=== PATIENT | female | born 1990 | race Caucasian/White ===

== ENCOUNTER → 2019-03-05 13:17 | Outpatient (CLI) | payer OTHER, SELFPAY ==
[2019-03-05 14:21] LABS: HCG Quantitative /Beta subunit < 2.39 mIU/mL
== END ==
PROVIDERS: Visit Provider Physician Assistant
DX: Z32.02 Encounter for pregnancy test, result negative (principal)
CPT/HCPCS: 36415; 84702

== ENCOUNTER 2019-09-13 12:18 | Emergency (ER) | payer OTHER, SELFPAY ==
[2019-09-13 12:35] VITALS: BP 98/64; PULSE 109; RESP 14; TEMP 37.5; O2SAT 100
--- NOTE | 2019-09-13 14:07 | ED_ITS ---
HPI - Back Pain/Injury General Chief Complaint: Back Pain/Injury Stated Complaint: lightheadedness, back pain, sent from [facility] Time Seen by Provider: 09/13/19 14:00 Source: patient Limitations: no limitations History of Present Illness HPI Narrative: 29-year-old woman with some mild left back pain, heavy menstrual cycle had a episode of dizziness while at [facility]. They were quite concerned and recommended to come to the emergency room for further evaluation. She is not particularly concerned and would not have chosen to come to the emergency room with any of her symptoms otherwise. She does note that her last Depo shot was last October(almost a year ago) and she has had regular periods since then. She was concerned that the current menstrual cycle was a couple days late. She took a home test that was negative and then began having her menses. She has continued to bleed for 8 days and describes it is moderately heavy but not that unusual. She is not particularly concerned with this. She states that she has a very active job with lots of lifting, bending, twisting and has a bit of left upper lumbar back pain. She denies fever, chills, no high risk factors for epidural abscess or diskitis, no dysuria, flank pain, suprapubic pain or abdominal pain. Related Data Home Medications Medication Instructions Recorded Confirmed No Known Home Medications 03/05/19 03/05/19 Allergies Allergy/AdvReac Type Severity Reaction Status Date / Time hydrocodone AdvReac Nausea Verified 09/13/19 12:42 Review of Systems Review of Systems Narrative: All systems reviewed and are unremarkable except as noted in HPI and below Patient History Social History Smoking Status: Former smoker Smoking Status: Former smoker alcohol intake frequency: other Substance Use Type: does not use Exam Narrative Exam Narrative: General: Healthy appearing, in no acute distress. Able to give a complete and coherent history. Well-nourished well-developed. Heart rate goes from 95 supine to 105 standing without dizziness or lightheadedness HEENT: Moist mucous membranes, normal sclera with reactive pupils, Neck: supple Respiratory: Lungs are clear to auscultation, no wheezing no rales no rhonchi. Full and symmetrical air movement Cardiac: Regular rate and rhythm no murmurs no bruits Abdomen: Soft nontender good bowel tones, no flank pain Skin: Warm and dry, no rashes Neurologic: Grossly neurologically intact with no obvious asymmetries or abnormalities Extremities: No trauma, well perfused Spine: No tenderness along the axial skeleton to palpation. She has some mild muscle spasm that completely reproduces her back pain when palpated from approximately T12-L3 without associated skin rashes. Psych: Cooperative, appropriate insight and affect Initial Vital Signs Initial Vital Signs: Vital Signs Temperature 99.5 F 09/13/19 12:35 Pulse Rate 109 H 09/13/19 12:35 Respiratory Rate 14 09/13/19 12:35 Blood Pressure 98/64 09/13/19 12:35 Pulse Oximetry 100 09/13/19 12:35 Course Vital Signs Vital signs: Vital Signs - 8 hr 09/13/19 12:35 Temperature 99.5 F Pulse Rate 109 H Respiratory Rate 14 Blood Pressure 98/64 Pulse Oximetry 100 MDM - Back Pain/Injury Medical Records Attestation: I reviewed the patient's medical records. [facility] Narrative Medical decision making narrative: 29-year-old to had an it bothered to eat or drink over the last 24 hours with a mild near syncopal episode while in the [facility] office with her child she states that she does have plenty of food to eat and drink at home and simply forgets at times. She is having a heavy menstrual cycle but does not considered abnormal. She has developed some mechanical back pain is been present for 5 days related to her active lifestyle and physical amanda b. Questions are answered, she is safe for home discharge at this time Discharge Plan Departure Patient Disposition: Home Clinical Impression: Acute mechanical low back pain with duration of less than six weeks, Acute dehydration Instructions: DI for Back Strain or Sprain Activity Restrictions/Additional Instructions: Thank you for coming in today. Your physical exam today suggests an acute back strain based on the bit of muscle spasm in the active area where your hurting. The rest of your exam is entirely normal and I am not suspicious that you have an acute infection of any type or need any additional workup at this time. The fact that you had a negative test just prior to starting this period and that the period has been a bit heavy, may have contributed to the slight bit of dizziness that you had earlier today. Certainly not eating or drinking for almost 24 hours will cause some dehydration and can certainly lead to some dizziness. It is safe for you to go home. I would encourage you to continue drinking fluid and have some lunch once you are out of the emergency department For the back pain using 400 mg of ibuprofen(parentheses 2 [id number] pills) and 1 Tylenol every 6 hours can be very helpful in controlling pain. If the menstrual bleeding continues or worsens and you want to have that further evaluated please return to the emergency department. I hope your back heals up quickly Prescriptions: No Action No Known Home Medications RF: 0
[2019-09-13 14:35] VITALS: BP 101/68; PULSE 88; RESP 12; O2SAT 98
--- NOTE | 2019-09-13 14:41 | ED.BACK ---
HPI - Back Pain/Injury General Chief Complaint: Back Pain/Injury Stated Complaint: lightheadedness, back pain, sent from [facility] Time Seen by Provider: 09/13/19 14:00 Source: patient Limitations: no limitations History of Present Illness HPI Narrative: 29-year-old woman with no significant medical issues has not had anything to eat or drink over the last 24 hours aside from a number of cups of coffee had a near syncopal episode while at a [facility] visit and also notes that she is having left back pain and a particularly heavy menstrual cycle currently. Had [facility] not insisted on evaluation she would not have presented to the emergency department. She notes she has an active lifestyle, as well as a physically demanding job. She has noticed left-sided low back pain for approximately 5 days. No radicular complaints with this. She also notes that her current menstrual cycle was a few days late. She had a negative test and then began her cycle and has had 8 days of bleeding at this time. She states that it is a bit heavier than usual but is not particularly concerned. She denies fevers, chills, cough, abdominal pain, shortness of breath. Regarding her back pain she has had no specific traumas, no high risk behaviors to be concern for epidural abscess or diskitis, and no recent infections. Related Data Home Medications Medication Instructions Recorded Confirmed No Known Home Medications 03/05/19 03/05/19 Allergies Allergy/AdvReac Type Severity Reaction Status Date / Time hydrocodone AdvReac Nausea Verified 09/13/19 12:42 Review of Systems Review of Systems Narrative: All systems reviewed and are unremarkable except as noted in HPI and below Patient History Social History Smoking Status: Former smoker Smoking Status: Former smoker alcohol intake frequency: other Substance Use Type: does not use Exam Narrative Exam Narrative: General: Healthy appearing, in no acute distress. Able to give a complete and coherent history. Well-nourished well-developed HEENT: Moist mucous membranes, normal sclera with reactive pupils, Neck: supple Respiratory: Lungs are clear to auscultation, no wheezing no rales no rhonchi. Full and symmetrical air movement Cardiac: Regular rate and rhythm no murmurs no bruits Abdomen: Soft nontender good bowel tones, no flank pain Skin: Warm and dry, no rashes Spine: Minor paraspinous muscle spasm approximately T10-L3 left side Neurologic: Grossly neurologically intact with no obvious asymmetries or abnormalities Extremities: No trauma, well perfused Psych: Cooperative, appropriate insight and affect Initial Vital Signs Initial Vital Signs: Vital Signs Temperature 99.5 F 09/13/19 12:35 Pulse Rate 109 H 09/13/19 12:35 Respiratory Rate 14 09/13/19 12:35 Blood Pressure 98/64 09/13/19 12:35 Pulse Oximetry 100 09/13/19 12:35 Course Vital Signs Vital signs: Vital Signs - 8 hr 09/13/19 12:35 09/13/19 14:35 Temperature 99.5 F Pulse Rate 109 H 88 Respiratory Rate 14 12 Blood Pressure 98/64 101/68 Pulse Oximetry 100 98 MDM - Back Pain/Injury MDM Narrative Medical decision making narrative: Mild near syncopal episode after a day of minimal oral input. She does state that she does have access to food and drinks but frequently forgets to eat. Mild paraspinous spasm to the back consistent with an active job and lifestyle. Heavy menstrual cycle that she feels is well still within her norm. Safe for home discharge at this time Discharge Plan Departure Patient Disposition: Home Clinical Impression: Acute mechanical low back pain with duration of less than six weeks, Acute dehydration Discharge Date/Time: 09/13/19 14:37 Instructions: DI for Back Strain or Sprain Activity Restrictions/Additional Instructions: Thank you for coming in today. Your physical exam today suggests an acute back strain based on the bit of muscle spasm in the active area where your hurting. The rest of your exam is entirely normal and I am not suspicious that you have an acute infection of any type or need any additional workup at this time. The fact that you had a negative test just prior to starting this period and that the period has been a bit heavy, may have contributed to the slight bit of dizziness that you had earlier today. Certainly not eating or drinking for almost 24 hours will cause some dehydration and can certainly lead to some dizziness. It is safe for you to go home. I would encourage you to continue drinking fluid and have some lunch once you are out of the emergency department For the back pain using 400 mg of ibuprofen(parentheses 2 xszj-whe-ccnvnly pills) and 1 Tylenol every 6 hours can be very helpful in controlling pain. If the menstrual bleeding continues or worsens and you want to have that further evaluated please return to the emergency department. I hope your back heals up quickly Prescriptions: No Action No Known Home Medications RF: 0
== END 2019-09-13 14:37 | disposition home or self-care (01) ==
PROVIDERS: Emergency Provider Emergency Medicine
DX: M54.5 Low back pain (principal); E86.0 Dehydration; N92.0 Excessive and frequent menstruation with regular cycle
CPT/HCPCS: 99281

== ENCOUNTER → 2020-08-08 12:57 | Outpatient (CLI) | payer OTHER, SELFPAY ==
[2020-08-08 13:30] LABS: Add Manual Diff / Slide Review NO; Basophils Absolute Auto 0 /uL (0-100); Basophils Percent Auto 0.2 % (0-2); Eosinophils Absolute Auto 300 /uL (0-450); Eosinophils Percent Auto 2.3 % (2-4); Hematocrit 40.5 % (36-46); Hemoglobin 14.1 g/dL (12.0-16.0); Lymphocytes Absolute Auto 2500 /uL (1100-4500); Lymphocytes Percent Auto 19.3 % (25-40); Mean Corpuscular HGB Conc 34.9 % (30-36); Mean Corpuscular Hemoglobin 28.8 PG (26-34); Mean Corpuscular Volume 82.6 fL (80-100); Monocytes Absolute Auto 700 /uL (0-900); Monocytes Percent Auto 5.6 % (3-14); Neutrophils Absolute Auto 9400 /uL (1500-7000); Neutrophils Percent Auto 72.6 % (50-75); Platelet Count 337 X10^3/uL (150-400); Red Blood Cell Count 4.91 X10^6/uL (4.0-5.2); Red Cell Distribution Width 13.1 % (11.6-14.8)
[2020-08-08 16:51] LABS: Appearance Urine UA CLOUDY; Bilirubin Urine UA NEGATIVE (NEGATIVE); Color Urine UA YELLOW; Glucose Urine UA NEGATIVE (Negative); Ketones Urine UA NEGATIVE (NEGATIVE); Leukocyte Esterase Urine UA TRACE (NEGATIVE); Nitrite Urine UA POSITIVE (Negative); Occult Blood Urine UA NEGATIVE (Negative); Protein Urine UA NEGATIVE (Negative); Urobilinogen Urine UA 0.2 E.U./dL (0.2)
[2020-08-08 17:06] LABS: pH Urine UA 6.5 (4.5-8.0)
[2020-08-08 17:07] LABS: RBC Urine 0-1/HPF (0-5/HPF); Squamous Epithelial Cell Urine >30 /HPF (0-5/HPF); WBC Urine 1-5/HPF (0-5/HPF)
[2020-08-08 17:08] LABS: Bacteria Urine Many (>30); Transitional Epi Cells Urine 5-10/HPF (0-5/HPF)
[2020-08-08 17:09] LABS: Urine Comments Contaminated?
[2020-08-08 20:38] LABS: Hepatitis B Surface Antigen NEGATIVE s/c (NEGATIVE)
[2020-08-08 20:55] LABS: HIV 1 & 2 Ab/Ag 4th Gen Combo NEGATIVE (NEGATIVE); Hep C Virus Ab w/Reflex Quant NEGATIVE s/c (NEGATIVE)
[2020-08-09 04:36] LABS: Varicella IgG Antibody 1453 index (Immune >165)
[2020-08-09 09:45] LABS: RPR Screen Non Reactive (Non Reactive)
== END ==
PROVIDERS: PCP Family Medicine; Referring Provider Family Medicine; Visit Provider Family Medicine
DX: Z34.81 Encounter for supervision of other normal pregnancy, first trimester (principal)
CPT/HCPCS: 36415; 80055; 81003; 81015; 86787; 86803; 86850; 86900; 86901; 87077; 87086; 87186; 87389

== ENCOUNTER → 2020-11-07 11:33 | Outpatient (CLI) | payer OTHER, SELFPAY ==
[2020-11-07 16:42] LABS: Add Manual Diff / Slide Review NO; Basophils Absolute Auto 100 /uL (0-100); Basophils Percent Auto 0.5 % (0-2); Eosinophils Absolute Auto 300 /uL (0-450); Eosinophils Percent Auto 1.7 % (2-4); Hematocrit 34.8 % (36-46); Hemoglobin 12.2 g/dL (12.0-16.0); Lymphocytes Absolute Auto 2600 /uL (1100-4500); Lymphocytes Percent Auto 17.3 % (25-40); Mean Corpuscular Hemoglobin 29.7 PG (26-34); Mean Corpuscular Volume 84.9 fL (80-100); Monocytes Absolute Auto 900 /uL (0-900); Monocytes Percent Auto 5.9 % (3-14); Neutrophils Absolute Auto 11300 /uL (1500-7000); Neutrophils Percent Auto 74.6 % (50-75); Platelet Count 292 X10^3/uL (150-400); Red Cell Distribution Width 14.1 % (11.6-14.8); White Blood Cell Count 15.2 X10^3/uL (4.5-11.0)
[2020-11-07 17:17] LABS: GTT (PREG) 1 Hour PP 50gm Dose 102 mg/dL (76-139)
== END ==
PROVIDERS: PCP Family Medicine; Referring Provider Family Medicine; Visit Provider Family Medicine
DX: Z34.90 Encounter for supervision of normal pregnancy, unspecified, unspecified trimester (principal)
CPT/HCPCS: 36415; 82950; 85025

== ENCOUNTER → 2020-12-28 09:02 | Outpatient (CLI) | payer OTHER, SELFPAY ==
--- NOTE | 2020-12-28 09:04 | DI.US.S_ITS ---
PROCEDURE: US OB LIMITED INDICATIONS: LGA OUTSIDE/PRIOR DATING DATA: Last menstrual period (LMP): Unknown . LMP-based estimated date of delivery (MISSY): Not applicable First dating scan (date and location): 12/28/2020 Estimated date of delivery (MISSY) from first dating scan: 03/06/2021 TECHNIQUE: Real-time scanning was performed of the fetus, with image documentation and biometric measurements. Endovaginal scanning: Not performed COMPARISON: None. FINDINGS: General: A single living intrauterine gestation is present. Presentation: Vertex. Placenta: Placental position is posterior , without previa. Amniotic fluid index: 19.5 cm, normal range is 5-24 cm. heart rate: 150 beats per minute. Maternal cervical canal: 6.0 cm long. Normal lower limit is 2.5 cm. biometrics: Biparietal diameter: 77 mm; 30 weeks 5 days Head circumference: 281 mm; 30 weeks 5 days Abdominal circumference: 255 mm; 29 weeks 5 days Femur length: 57 mm; 29 weeks 6 days Estimated gestational age from initial scan: 28 weeks 1 day Composite gestational age from present scan: 30 weeks 2 days Estimated weight and percentile: 1476 g which is at the 94th percentile for gestational age Measurement variability for biometric dating: +/- 7 days from 14 weeks to 15 weeks 6 days gestation, +/- 10 days from 16 weeks to 21 weeks 6 days gestation, +/- 2 weeks from 22 weeks to 27 weeks 6 days gestation, +/- 3 weeks for 28 weeks gestation or later. weight reference: 4500 g or EFW >90/95% is considered macrosomia or large for gestational age. EFW <10% is small for gestational age. EFW 5% or less is considered intra-uterine growth restriction. Other: Not applicable. IMPRESSION: 1. Single living intrauterine gestation. 2. Estimated weight is at the 94th percentile for gestational age. Dictated by: Jenn Irwin M.D. on 12/29/2020 at 14:43 Approved by: Jenn Irwin M.D. on 12/29/2020 at 14:45
== END ==
PROVIDERS: PCP Family Medicine; Referring Provider Family Medicine; Visit Provider Family Medicine
DX: Z36.88 Encounter for antenatal screening for fetal macrosomia (principal); Z3A.30 30 weeks gestation of pregnancy
CPT/HCPCS: 76815

== ENCOUNTER → 2021-01-30 09:18 | Outpatient (CLI) | payer OTHER, SELFPAY ==
--- NOTE | 2021-01-30 09:19 | DI.US.S_ITS ---
PROCEDURE: US OB LIMITED INDICATIONS: GROWTH AND AMNIOTIC FLUID INDEX OUTSIDE/PRIOR DATING DATA: Last menstrual period (LMP): Unknown . LMP-based estimated date of delivery (MISSY): Unknown . First dating scan (date and location): 12/28/20 . Estimated date of delivery (MISSY) from first dating scan: 03/06/21 . TECHNIQUE: Real-time scanning was performed of the fetus, with image documentation and biometric measurements. Biophysical profile was also obtained. Endovaginal scanning: Not performed COMPARISON: [facility], OB LIMITED, 12/28/2020, 9:25. FINDINGS: General: A single living intrauterine gestation is present. Presentation: Vertex. Placenta: Placental position is posterior , without previa. Amniotic fluid index: 22.9 cm, normal range is 5-24 cm. , largest pocket 6.8 cm. heart rate: 155 beats per minute. Maternal cervical canal: 5.9 cm long. Normal lower limit is 2.5 cm. biometrics: Biparietal diameter: 8.9 cm, 36 weeks 0 days Head circumference: 32.3 cm, 36 weeks 4 days Abdominal circumference: 30.5 cm, 34 weeks 3 days Femur length: 6.6 cm, 33 weeks 6 days Estimated gestational age from initial scan: 35 weeks 0 days Composite gestational age from present scan: 35 weeks 2 days Estimated weight and percentile: 2488 g, 37th percentile Measurement variability for biometric dating: +/- 7 days from 14 weeks to 15 weeks 6 days gestation, +/- 10 days from 16 weeks to 21 weeks 6 days gestation, +/- 2 weeks from 22 weeks to 27 weeks 6 days gestation, +/- 3 weeks for 28 weeks gestation or later. weight reference: 4500 g or EFW >90/95% is considered macrosomia or large for gestational age. EFW <10% is small for gestational age. EFW 5% or less is considered intra-uterine growth restriction. Normal appearance of the chest, stomach kidneys and bladder. IMPRESSION: Single living intrauterine fetus in vertex presentation. Normal LESA. Expected interval growth as above Dictated by: Gianni Anderson M.D. on 01/30/2021 at 12:43 Approved by: Gianni Anderson M.D. on 01/30/2021 at 12:45
== END ==
PROVIDERS: PCP Family Medicine; Referring Provider Family Medicine; Visit Provider Family Medicine
DX: Z36.89 Encounter for other specified antenatal screening (principal); Z3A.35 35 weeks gestation of pregnancy
CPT/HCPCS: 76815

== ENCOUNTER 2021-02-18 16:08 | Emergency (ER) | payer OTHER, SELFPAY ==
[2021-02-18 16:10] VITALS: BP 145/83; PULSE 110; RESP 18; TEMP 37.2; O2SAT 98; BMI 37.0
--- NOTE | 2021-02-18 16:50 | ED_ITS ---
HPI - Abdominal Pain General Chief Complaint: Abdominal Pain Stated Complaint: CONSTIPATION 3 DAYS 35WKS Time Seen by Provider: 02/18/21 16:17 Source: patient Mode of arrival: Ambulatory Limitations: no limitations History of Present Illness HPI narrative: 31-year-old young woman at 35 weeks gestational age presents with severe constipation and perirectal pain. She has tried increasing fluids, fiber his use 2 packets of MiraLax today and his strain so much she is causing hemorrhoidal swelling. She comes in for further help. She notes that her baby is moving appropriately and has no specific related concerns. She describes no fevers, cough, chills, vomiting, headache, palpitations or chest pain. Related Data Home Medications Medication Instructions Recorded Confirmed cetirizine 10 mg tablet 10 mg PO DAILY 08/03/20 12/22/20 Previous Rx's Medication Instructions Recorded prenat.vits,obi,fzj-weyc-kwhlo 1 tab PO DAILY #90 tab 08/03/20 Allergies Allergy/AdvReac Type Severity Reaction Status Date / Time sunflower oil Allergy Mild Hives, GI Verified 12/22/20 15:03 bloating hydrocodone AdvReac Severe Nausea Verified 12/22/20 15:03 strawberry AdvReac Intermediate GI Bloating Verified 12/22/20 15:03 Review of Systems Review of Systems Narrative: Remainder of complete review of systems is otherwise unremarkable except for that included in the HPI. Patient History Medical History (Updated 02/18/21 @ 16:56 by Shannan Whitehead MD) Asthma (~2004) Shoulder fracture, left (~2003) Strain of muscle, fascia and tendon of lower back, sequela (~09/2019) Surgical History (Updated 08/03/20 @ 09:26 by Marti Freire RN) Onward teeth extracted Family History (Updated 08/03/20 @ 09:33 by Marti Freire RN) Mother Rheumatoid arthritis Father No problems noted. Grandmother Paranoid schizophrenia Grandfather No problems noted. Grandmother Syncope Grandfather Myocardial infarction Pacemaker Brother Color blind Social History marital status: unmarried,single number of children: 1 household members: children and friend(s) (2 roommates and their son.) lives independently: Yes caregiver/support person: No housing: house pets and animals: Yes (4 dogs (safe); 1 cat (she is allergic, no handling). 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 ) substance use type: does not use during the past year weight has: increased > 10 lbs well-balanced diet: daily or most days daily servings fruits/ve or more times/day (Meditteranean diet. ) caffeine: Yes (Stopped with . ) eating out: rarely or never Type(s) of exercise: walking, other (Pushups, drills; has not been going to gym since it closed. ) and normal ROM and activity frequency: daily Smoking Status: Never smoker alcohol intake frequency: other Substance Use Type: does not use Exam Narrative Exam Narrative: General: Alert appropriate in no acute distress Respiratory: Able to speak in full sentences, no obvious respiratory distress Skin: No obvious rashes, warm and dry Abdominal: Gravid, otherwise soft good bowel tones Rectal exam: 2 x 1 cm non thrombosed hemorrhoid at the 6 o'clock position. Good rectal tone. Significant constipation Neurologic: Grossly intact no obvious asymmetries or abnormalities Psych: appropriate insight and affect, cooperative Initial Vital Signs Initial Vital Signs: Vital Signs Temperature 98.9 F 02/18/21 16:10 Pulse Rate 110 H 02/18/21 16:10 Respiratory Rate 18 02/18/21 16:10 Blood Pressure 145/83 H 02/18/21 16:10 Pulse Oximetry 98 02/18/21 16:10 [place] [facility] [place] Procedure: Manual bowel disimpaction Technique/Description of procedure performed: With lubrication, all general rectal exam with a moderate amount of very hard stool is removed. Once the extraordinarily hard stool is out a mineral oil enema is administered. Course Orders Ordered: Discontinued Medications Mineral Oil (Mineral Oil 1 Each Enema) 1 each ID NOW ONE Stop: 02/18/21 16:48 Last Admin: 02/18/21 17:06 Dose: 1 each Documented by: ROLAND Vital Signs Vital signs: Vital Signs - 8 hr 02/18/21 16:10 Temperature 98.9 F Pulse Rate 110 H Respiratory Rate 18 Blood Pressure 145/83 H Pulse Oximetry 98 MDM - Abdominal Pain MDM Narrative Medical decision making narrative: Severe constipation the 31-year-old woman at 35 weeks gestational age. Post manual bowel disimpaction with mineral oil enema and excellent response. She is safe for discharge home. Will suggest that she add daily MiraLax to prevent further complications of constipation. She is safe for home discharge Discharge Plan Departure Patient Disposition: Home Clinical Impression: Qualifiers: Weeks of gestation: 35 weeks Qualified Code(s): Z3A.35 - 35 weeks gestation of Constipation Qualifiers: Constipation type: unspecified constipation type Qualified Code(s): K59.00 - Constipation, unspecified Instructions: DI for Constipation Activity Restrictions/Additional Instructions: I am sorry that your having so much difficulty with constipation. This can be miserable any time but particularly horrible at the end of your . I am going to suggest that you use MiraLax daily to keep your stool soft. You cannot overdose on MiraLax and it will not be absorbed in your body and will not hurt your baby. Use 1 packet every morning and if you have not had a soft bowel movement during the day than he use a another packet in the evening. You can and increase this as needed to maintain daily soft bowel movements. I wish you the best with the rest of your . Prescriptions: No Action prenat.vits,obi,nzb-bthq-qhusa Tablet 1 tab PO DAILY Qty: 90 RF: 3 cetirizine 10 mg tablet 10 mg PO DAILY RF: 0 Referrals: Vidhya Villalpando MD [Primary Care Provider] -
[2021-02-18] MEDS: MINERAL OIL 1 EACH ENEMA PR (17:06)
--- NOTE | 2021-02-18 18:04 | PC.NURSE ---
pt had a very large hard brown bowel movement after her enema. pt reports she feels good.
[2021-02-18 18:05] VITALS: BP 132/76; PULSE 106; RESP 18; O2SAT 99
== END 2021-02-18 18:06 | disposition home or self-care (01) ==
PROVIDERS: Emergency Provider Emergency Medicine; PCP Family Medicine
DX: O26.893 Other specified pregnancy related conditions, third trimester (principal); K59.00 Constipation, unspecified; Z3A.35 35 weeks gestation of pregnancy
CPT/HCPCS: 99282

== ENCOUNTER → 2021-02-26 12:28 | Outpatient (CLI) | payer OTHER, SELFPAY ==
[2021-02-27 11:19] LABS: Strep Grp B PCR POS for Grp B Strep
== END ==
PROVIDERS: PCP Family Medicine; Visit Provider Family Medicine
DX: Z34.90 Encounter for supervision of normal pregnancy, unspecified, unspecified trimester (principal); Z3A.36 36 weeks gestation of pregnancy
CPT/HCPCS: 87653

== ENCOUNTER → 2021-02-27 08:57 | Outpatient (CLI) | payer OTHER, SELFPAY ==
--- NOTE | 2021-02-27 08:58 | DI.US.S_ITS ---
PROCEDURE: US OB LIMITED INDICATIONS: GROWTH OUTSIDE/PRIOR DATING DATA: Last menstrual period (LMP): Unknown . LMP-based estimated date of delivery (MISSY): Unknown . First dating scan (date and location): 10/02/2020 [place] Estimated date of delivery (MISSY) from first dating scan: 03/21/2021 . TECHNIQUE: Real-time scanning was performed of the fetus, with image documentation. COMPARISON: [facility], OB LIMITED, 12/28/2020, 9:25. Outside Facility, , US OB DETAILED ANATOMY, 11/06/2020, 12:34. Outside Facility, , US OB NUCHAL MEASUREMENT, 09/12/2020, 8:22. [facility], OB LIMITED, 01/30/2021, 9:23. FINDINGS: A single living intrauterine gestation is present. Presentation: Vertex. Placenta: Placental position is posterio , without previa. Amniotic fluid index: 11.0 cm cm, normal range is 5-24 cm. heart rate: 175 beats per minute. Maternal cervical canal: Not well seen. Estimated gestational age from initial scan: 39 weeks 0 days estimated gestational age from current exam 38 weeks 5 days estimated weight: 3547 g, 93rd percentile. IMPRESSION: 1. Single live intrauterine . 2. weight is noted at the 93rd percentile Dictated by: Korina Kurtz M.D. on 02/27/2021 at 13:31 Approved by: Korina Kurtz M.D. on 02/27/2021 at 13:34
== END ==
PROVIDERS: PCP Family Medicine; Referring Provider Family Medicine; Visit Provider Family Medicine
DX: Z36.89 Encounter for other specified antenatal screening (principal); Z3A.38 38 weeks gestation of pregnancy
CPT/HCPCS: 76815

== ENCOUNTER 2021-03-22 01:41 | Inpatient (IN) | payer OTHER, SELFPAY ==
[2021-03-22] MEDS: LACTATED RINGERS 1,000 ML 100 ML IV (03:45)
[2021-03-22] MEDS: PENICILLIN G POTASSIUM 5,000,000 UNIT in DEXTROSE 5% IN WATER 250 ML IV (03:45)
[2021-03-22 04:17] VITALS: BP 124/79
[2021-03-22 04:28] LABS: Add Manual Diff / Slide Review NO; Basophils Absolute Auto 100 /uL (0-100); Basophils Percent Auto 0.6 % (0-2); Eosinophils Absolute Auto 300 /uL (0-450); Eosinophils Percent Auto 1.3 % (2-4); Hematocrit 39.1 % (36-46); Hemoglobin 13.1 g/dL (12.0-16.0); Lymphocytes Absolute Auto 3100 /uL (1100-4500); Mean Corpuscular HGB Conc 33.4 % (30-36); Mean Corpuscular Hemoglobin 26.8 PG (26-34); Mean Corpuscular Volume 80.2 fL (80-100); Monocytes Absolute Auto 1000 /uL (0-900); Monocytes Percent Auto 5.4 % (3-14); Neutrophils Absolute Auto 15000 /uL (1500-7000); Neutrophils Percent Auto 76.7 % (50-75); Platelet Count 313 X10^3/uL (150-400); Red Blood Cell Count 4.88 X10^6/uL (4.0-5.2); Red Cell Distribution Width 13.2 % (11.6-14.8); White Blood Cell Count 19.6 X10^3/uL (4.5-11.0)
--- NOTE | 2021-03-22 04:37 | PM.AN.REGBLK ---
Regional Block Pre-procedure Procedure: Continuous Lumbar Epidural for L&D Attending OB provider: Stephen Hidalgo PMH/ROS narrative: obesity Hx: No personal or family history of anesthesia problems. PSH/Anesthesia history narrative: previous epidural late in labor (9cm) without issues Exam narrative: RRR CTAB ASA Class: III Labs: Hct 39.1 % (36-46) 03/22/21 04:00 Plt Count 313 X10^3/uL (150-400) 03/22/21 04:00 Medications: Current Medications Generic Name Dose Route Start Last Admin Trade Name Freq PRN Reason Stop Dose Admin Calcium Carbonate 1,000 mg 03/22/21 02:19 Calcium Carbonate 500 Mg Tab PO Q2HR PRN Dyspepsia Carboprost Tromethamine 250 mcg 03/22/21 02:19 Carboprost 250 Mcg/Ml Ampul IM Q90M PRN Bleeding Fentanyl 100 mcg 03/22/21 02:19 Fentanyl 100 Mcg/2 Ml Inj IV Q1H PRN Pain, Severe (7-10) Lactated Ringer's 1,000 mls @ 100 mls/hr 03/22/21 02:30 Lactated Ringers IV CONT TANISHA Oxytocin/Lactated Ringer's 30 unit in 500 mls @ 200 mls/hr 03/22/21 02:19 Oxytocin Premix IV CONT PRN Bleeding Protocol Tranexamic Acid 1,000 mg/ 100 mls @ 200 mls/hr 03/22/21 02:19 Sodium Chloride IV NOW PRN Bleeding Penicillin G Potassium 3,000,000 unit in 50 mls @ 100 mls/hr 03/22/21 06:30 Penicillin G Potassium IV Q4H TANISHA Methylergonovine Maleate 0.2 mg 03/22/21 02:19 Methylergonovine 0.2 Mg Tablet PO Q6HR PRN Heavy Bleeding Methylergonovine Maleate 0.2 mg 03/22/21 02:19 Methylergonovine 0.2 Mg/Ml Vial IM NOW PRN Bleeding Metoclopramide HCl 10 mg 03/22/21 02:19 Metoclopramide 10 Mg/2 Ml Inj IV NOW PRN Nausea And Vomiting Misoprostol 800 mcg 03/22/21 02:19 Misoprostol 200 Mcg Tablet MN NOW PRN Bleeding Misoprostol 1,000 mcg 03/22/21 02:19 Misoprostol 200 Mcg Tablet MN NOW PRN Bleeding Misoprostol 400 mcg 03/22/21 02:19 Misoprostol 200 Mcg Tablet SL NOW PRN Bleeding Naloxone HCl 0.2 mg 03/22/21 02:19 Naloxone 0.4 Mg/Ml Vial IV Q2MIN PRN Opiate Reversal Ondansetron HCl 4 mg 03/22/21 02:19 Ondansetron 4 Mg/2 Ml Inj IV Q4HR PRN Nausea And Vomiting Oxytocin 10 unit 03/22/21 02:19 Oxytocin 10 Unit/Ml Vial IM NOW PRN Bleeding Allergies: Allergies Allergy/AdvReac Type Severity Reaction Status Date / Time sunflower oil Allergy Mild Hives, GI Verified 12/22/20 15:03 bloating hydrocodone AdvReac Severe Nausea Verified 12/22/20 15:03 strawberry AdvReac Intermediate GI Bloating Verified 12/22/20 15:03 Procedure Insertion date: 03/22/21 Insertion time: 04:20 Prep/Local: betadine x3 (chloroprep) and 1% lidocaine Interspace: L3-4 Patient position: sitting Needle: 18 gauge [place] (with 27G pencil point needle-through needle for IT dose) Loss of resistance with: saline ENA at (cm): 6 Catheter placed at SKIN (cm): 11 Catheter in SPACE (cm): 5 Insertion: Yes CSF Initial Medications TEST DOSE time: 04:20 TEST DOSE: 1.5% lidocaine with epinephrine 1:200k (mL): 5 BOLUS DOSE time: :21 BOLUS DOSE (mL): 2 BOLUS DOSE med: other (10mcg fentanyl intrathecally, 90mcg fentanyl via epidural catheter) Infusion INFUSION: 0.0625% bupivacaine and with fentanyl 2 mcg/mL Initial rate (mL/hr): 12 Post-procedure Anesthesia time START: 04:06 Anesthesia time END: 09:36 Post-procedure Anesthesia Assessment: No Anesthesia complications
[2021-03-22 04:53] VITALS: BP 111/68
[2021-03-22 05:10] LABS: COVID19 - ADMIT (NP swab/PCR) Negative (Negative)
--- NOTE | 2021-03-22 06:32 | P.HPOB_ITS ---
OB HPI Date/Time Date of admission: 03/22/21 Date Patient Seen: 03/22/21 Time Patient Seen: 06:33 History of Present Condition Chief complaint: MATERNITY : 2 Para: 1 Estimated Date of Delivery: 03/21/21 Estimated Gestational Age (weeks): 40w1d Narrative: Xochilt Gay is a 31 year old at 40w1d who presented with regular contractions. Pt reports contractions starting History of Present care: good care, initiated at week # (7) and pounds weight gain (65) Dating criteria: based on 1st trimester US only Ultrasounds: normal 1st trimester US and normal mid trimester US (LGA) Obstetrical complications: other (LGA) Medical complications: none Preadmission Labs Blood type: A (+) positive -: Antibody screen: negative, GBS status: positive, HBsAG: negative, HIV: negative and RPR/VDLR: negative -: Rubella: immune and Varicella: immune HCT: 34.8 HCAB: reactive 1 hr GTT: 102 Prior (ies) History: 03/02/12 - at 40w2d, [id number] male, episiotomy required Evaluation Evaluation Baseline heart rate: 140 Variability: Moderate (11-25) monitor accelerations: Present Monitor Decelerations: Absent Contraction Frequency (minutes): 3 Uterine Contraction Intensity: Strong/Firm Status: Category l Cervical dilation (cm): 10 Cervical effacement (%): 100 station: -1 Comments: right sided cervical lip present [facility] Medical History (Updated 03/05/21 @ 00:00 by ) Asthma (~2004) Shoulder fracture, left (~2003) Strain of muscle, fascia and tendon of lower back, sequela (~09/2019) Surgical History (Updated 08/03/20 @ 09:26 by Marti Freire RN) T[place]house teeth extracted Family History (Updated 08/03/20 @ 09:33 by Marti Freire RN) Mother Rheumatoid arthritis Father No problems noted. Grandmother Paranoid schizophrenia Grandfather No problems noted. Grandmother Syncope Grandfather Myocardial infarction Pacemaker Brother Color blind Social History marital status: unmarried,single number of children: 1 household members: children and friend(s) (2 roommates and their son.) lives independently: Yes caregiver/support person: No housing: house pets and animals: Yes (4 dogs (safe); 1 cat (she is allergic, no handling). 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 ) substance use type: does not use during the past year weight has: increased > 10 lbs well-balanced diet: daily or most days daily servings fruits/ve or more times/day (Meditteranean diet. ) caffeine: Yes (Stopped with . ) eating out: rarely or never Type(s) of exercise: walking, other (Pushups, drills; has not been going to gym since it closed. ) and normal ROM and activity frequency: daily Meds Home Medications and Allergies Home Medications Medication Instructions Recorded Confirmed Type cetirizine 10 mg tablet 10 mg PO DAILY 08/03/20 03/22/21 History prenat.vits,obi,[id number] 1 tab PO DAILY #90 tab 08/03/20 03/22/21 Rx Allergies Allergy/AdvReac Type Severity Reaction Status Date / Time sunflower oil Allergy Mild Hives, GI Verified 12/22/20 15:03 bloating hydrocodone AdvReac Severe Nausea Verified 12/22/20 15:03 strawberry AdvReac Intermediate GI Bloating Verified 12/22/20 15:03 Exam Vital Signs (past 8 hours): - 03/22/21 04:17 Blood Pressure 124/79 Const General: cooperative, healthy appearing and comfortable Orientation: alert, awake and oriented x3 Resp Effort & Inspection: normal respiratory effort Auscultation: clear to auscultation bilaterally Cardio Rate: regular rate Rhythm: regular rhythm Heart Sounds: S1 normal, S2 normal and no murmurs GI Inspection: non-distended Palpation: soft and No tender Other: gravid Presentation: vertex Extrem General: no clubbing, cyanosis or edema Objective Labs Result Diagrams: 03/22/21 04:00 Labs: Laboratory Results - last 24 hr 03/22/21 03/22/21 03/22/21 04:00 04:00 04:00 WBC 19.6 H RBC 4.88 Hgb 13.1 Hct 39.1 MCV 80.2 MCH 26.8 MCHC 33.4 RDW 13.2 Plt Count 313 Neut % (Auto) 76.7 H Lymph % (Auto) 16.0 L [place] % (Auto) 5.4 Eos % (Auto) 1.3 L Baso % (Auto) 0.6 Neut # (Auto) 73224 H Lymph # (Auto) 3100 [place] # (Auto) 1000 H Eos # (Auto) 300 Baso # (Auto) 100 SARS-CoV-2 (PCR) Negative Blood Type A Positive Antibody Screen Negative Assessment and Plan Assessment and Plan Assessment and Plan narrative: Xochilt Gay is a 31 year old at 40w1d who presented in active labor. complicated by LGA with negative glucola. Last EFW at 36w6d 3547g, 93rd percentile. GBS positive, Rh positive. - Expectant management, anticipate - FHT reassuring - GBS positive, received first dose of penicillin already - Epidural in place for pain control - Will allow the pt to labor-down due to large size and station
[2021-03-22] MEDS: PENICILLIN G POTASSIUM 3,000,000 UNIT/50 ML FROZ.PIGGY 100 UNIT IV (07:10)
[2021-03-22] MEDS: CALCIUM CARBONATE 500 MG TAB 1000 MG PO (08:14)
--- NOTE | 2021-03-22 09:53 | PM.OBPRVD ---
Labor & Delivery Delivery date: 03/22/21 Intrapartal Events: None Cervical ripening method: none Induction method: none Delivery monitor: external FHT Route of delivery: Episiotomy description: None L&D Laceration Description: Perineal - 1st Degree Estimated blood loss (mL): 100 Anesthesia Type: Epidural Complications: None Narrative: PROCEDURE: at 40w1d presented in active labor and was admitted to Labor and Delivery. The patient progressed through the 1st stage over 4 hours. She received adequate dosing of penicillin for GBS prophylaxis. Pain was controlled with an epidural. She had SROM with clear fluid. The patient progressed through the 2nd stage over 2.5 hours and delivered a viable male infant with APGARs 9/9 at 9:36am via without complications. Thick meconium was noted at the time of delivery, however the baby has a spontenous cry and was vigorous. The cord was cut and clamped after it stopped pulsating. The perineum and vagina were inspected with small 1st degree laceration not repaired due to already being hemostatic. PREPROCEDURE DIAGNOSIS: Intrauterine at 40w1d GBS positive RH positive POSTPROCEDURE DIAGNOSIS: Intrauterine at 40w1d, delivered Same as preprocedure Baby 1: gender: Male Presentation: vertex Position: Right Occiput Anterior Placenta delivery description: Spontaneous Cord Vessel Description: 3 Vessels score (1 min): 9 score (5 min): 9 weight: 8 lb 2.373 oz Plan for aftercare: Routine care
[2021-03-22] MEDS: IBUPROFEN 600 MG TABLET PO ×2 (13:46→20:11)
[2021-03-22] MEDS: ACETAMINOPHEN 325 MG TABLET 650 MG PO ×2 (14:34→20:11)
[2021-03-23] MEDS: IBUPROFEN 600 MG TABLET PO ×2 (02:08→08:17)
[2021-03-23] MEDS: ACETAMINOPHEN 325 MG TABLET 650 MG PO ×2 (02:09→08:18)
[2021-03-23] MEDS: LANOLIN OINT 7 GM 1 APPLIC TOP (08:18)
[2021-03-23] MEDS: DOCUSATE 100 MG CAPSULE PO (08:23)
[2021-03-23] MEDS: PRENATAL VIT,CALC/IRON/FOLIC 1 TABLET 1 TAB PO (08:23)
[2021-03-23] MEDS: DERMOPLAST SPRAY 20% 60 ML 1 SPRAY TOP (09:28)
--- NOTE | 2021-03-23 09:53 | P.DS_ITS ---
Discharge Providers Provider Date of admission: 03/22/21 01:41 Discharge Date: 03/23/21 Primary care physician: Vidhya Villalpando MD Consults: 03/23/21 09:52 Consult to Lithoduplicator Operator Routine Comment: Discharge provider: Vidhya Villalpando MD Summary Hospital Course Date Patient Seen: 03/23/21 Time Patient Seen: 07:50 Diagnoses: 40w1d gestation LGA GBS positive Rh positive Hospital Course: The pt presented in active labor. She received an epidural for pain control. She progressed to complete without intervention and had a of a viable baby boy on 03/22/21 without complications. , there were no complications. At the time of discharge she was voiding, ambulating, and passing flatus without difficulty. Her lochia was decreasing appropriately. Her pain was well controlled. She was with good latch. She will f/u in clinic in 6 weeks. She plans on Depo for contraception. Peripartum Data Delivery Method: Natural Vaginal Laceration Description: Perineal - 1st Degree Episiotomy description: None Procedures: Spontaneous vaginal delivery complications: none [place] 1: Gender: Male Disposition of : home Discharge Diagnosis (1) Spontaneous vaginal delivery: Status: Acute Status at Discharge Cognitive/behavioral status at discharge: oriented Functional status at discharge: independent ambulation Overall status at discharge: patient is progressing back to baseline Time Spent with Patient Time attestation: Total time spent providing and/or coordinating discharge services: Objective Labs Result Diagrams: 03/22/21 04:00 Exam Narrative Exam Narrative: Gen: NAD, sitting comfortably in bed, appears well CV: RRR, no murmurs Resp: clear to auscultation bilaterally Abd: soft, appropriately tender, fundus firm and below the umbilicus, nondistended Ext: no edema Discharge Plan Discharge Plan Patient Disposition: Home Discharge orders & Medications Prescriptions: New acetaminophen 325 mg Tablet 650 mg PO Q6HR PRN (Reason: Pain, Mild (1-3)) Qty: 30 RF: 0 docusate sodium 100 mg Capsule 100 mg PO DAILY Qty: 30 RF: 0 ibuprofen 600 mg Tablet 600 mg PO Q6HR PRN (Reason: Pain, Mild (1-3)) Qty: 30 RF: 0 Continued prenat.vits,obi,[id number] Tablet 1 tab PO DAILY Qty: 90 RF: 3 cetirizine 10 mg tablet 10 mg PO DAILY RF: 0 Follow up/Referrals: Vidhya Villalpando MD [Primary Care Provider] - 6 Weeks (Please follow up with Dr. Villalpando on 05/02 at 12:00 pm. ) Diet/Activity/Treatments Diet: Diet as Tolerated and Regular Skin/Wound/Dressing Care Report to your healthcare provider any signs of infection, such as:: chills, fev er, increased pain and unusual drainage Visit Report/Discharge Packet Instructions: DI for Labor and Delivery, Vaginal Stand Alone Forms: Discharge: Care Visit Report Forms: Patient Portal/API, Stroke Signs & Symptoms Discharge Data Primary Care Provider: Vidhya Villalpando
[2021-03-23 10:41] VITALS: BP 116/58; PULSE 76; RESP 16; TEMP 36.3
== END 2021-03-23 12:05 | disposition home or self-care (01) | DRG 807 ==
PROVIDERS: Obstetrics & Gynecology; Admitting Provider Family Medicine; PCP Family Medicine; Referring Provider Family Medicine; Visit Provider Family Medicine
DX: O99.824 Streptococcus B carrier state complicating childbirth (principal); Z37.0 Single live birth; Z3A.40 40 weeks gestation of pregnancy
CPT/HCPCS: 01967; 36415; 59050; 59400; 85025; 86850; 86900; 86901; 87635; C9803; G0379; J2540

== ENCOUNTER → 2021-07-13 16:20 | Outpatient (CLI) | payer SELFPAY ==
--- NOTE | 2021-07-13 16:22 | DI.RAD.S_ITS ---
PROCEDURE: XR HIP W PEL IF DONE RT 2V INDICATIONS: right hip pain TECHNIQUE: AP pelvis with lateral view(s) of the right hip(s). COMPARISON: None. FINDINGS: Bones: No fractures or dislocations. Pelvic ring appears intact. No suspicious bony lesions. Soft tissues: The visualized bowel gas pattern is normal. No suspicious soft tissue calcifications. IMPRESSION: No definite radiographic abnormality. If pain persists with conservative management, consider cross sectional imaging such as CT or MRI for further assessment. Dictated by: Lawrence QUEVEDO Interpreted: Sharad Sahu MD on 07/13/2021 at 16:54 Transcribed by: MICHELE on 07/13/2021 at 16:55 Approved by: Sharad Sahu M.D. on 07/13/2021 at 17:31
== END ==
PROVIDERS: PCP Family Medicine; Referring Provider Family Medicine; Visit Provider Family Medicine
DX: M25.551 Pain in right hip (principal)
CPT/HCPCS: 73502

== ENCOUNTER → 2022-09-06 11:53 | Outpatient (CLI) | payer OTHER, SELFPAY ==
[2022-09-06 14:10] LABS: Hemoglobin A1C% w Est Avg Glu 5.1 % (4.0-6.0)
[2022-09-06 14:13] LABS: TSH w/ Reflex to FT4 1.37 uIU/mL (0.47-4.68)
== END ==
PROVIDERS: PCP Family Medicine; Referring Provider Family Medicine; Visit Provider Family Medicine
DX: E66.9 Obesity, unspecified (principal)
CPT/HCPCS: 36415; 83036; 84443

== ENCOUNTER → 2023-06-02 09:31 | Outpatient (CLI) | payer OTHER, SELFPAY ==
[2023-06-02 19:52] LABS: Urine N gonorrhoeae NOT DETECTED
[2023-06-02 20:06] LABS: Urine Chlamydia NOT DETECTED
== END ==
PROVIDERS: PCP Family Medicine; Visit Provider Family Medicine
DX: Z30.9 Encounter for contraceptive management, unspecified (principal); Z11.3 Encounter for screening for infections with a predominantly sexual mode of transmission
CPT/HCPCS: 87491; 87591

== ENCOUNTER → 2023-08-08 10:45 | Outpatient (CLI) | payer SELFPAY ==
[2023-08-08 11:43] LABS: Influenza A - CEPHEID Flu A NEGATIVE (NEGATIVE); Influenza B - CEPHEID Flu B NEGATIVE (NEGATIVE); Respiratory Syncytial Virus Negative (Negative)
[2023-08-08 12:19] LABS: COVID-19 CEPHEID 4-PLEX PCR Negative (Negative)
== END ==
PROVIDERS: PCP Family Medicine; Visit Provider Physician Assistant
DX: R05.1 Acute cough (principal); J02.9 Acute pharyngitis, unspecified
CPT/HCPCS: 0241U; 87070

== ENCOUNTER → 2023-10-21 12:11 | Outpatient (CLI) | payer OTHER, SELFPAY ==
--- NOTE | 2023-10-21 12:12 | DI.RAD.S_ITS ---
PROCEDURE: XR KNEE LT 3V INDICATIONS: pain TECHNIQUE: 3 views of the knee were acquired. COMPARISON: None. FINDINGS: Bones: No fractures or dislocations. No suspicious bony lesions. Soft tissues: No joint effusion. No suspicious soft tissue calcifications. IMPRESSION: No acute bony abnormality or significant effusion. If clinical symptoms persist or clinical suspicion for pathology is high, a repeat examination in 7-10 days, or advanced imaging such as CT or MRI is suggested for further evaluation. Dictated by: Lisa Spence M.D. on 10/21/2023 at 16:39 Approved by: Lisa Spence M.D. on 10/21/2023 at 16:40
== END ==
LOC: RAD 12:12
PROVIDERS: PCP Family Medicine; Referring Provider Family Medicine; Visit Provider Family Medicine
DX: M25.562 Pain in left knee (principal)
CPT/HCPCS: 73562

== ENCOUNTER → 2023-10-26 15:12 | Outpatient (CLI) | payer OTHER, SELFPAY ==
--- NOTE | 2023-10-26 15:14 | DI.MRI.S_ITS ---
PROCEDURE: MR KNEE LT WO CON INDICATIONS: L knee pain TECHNIQUE: Noncontrast sagittal PD fast spin echo and T2 fast spin echo with fat saturation, sagittal 3-D FLASH with fat saturation; coronal T1 spin echo and PD fast spin echo with fat saturation, and axial PD fast spin echo with fat saturation through the knee. COMPARISON: [facility], CR, XR KNEE LT 3V, 10/21/2023, 12:16. FINDINGS: Image quality: Excellent. Menisci: The medial and lateral menisci demonstrate normal morphology and internal signal. The meniscal root ligaments appear intact. Cruciate ligaments: The anterior and posterior cruciate ligaments appear intact. Medial structures: The medial collateral ligament appears intact. The posterior oblique ligament, semimembranosus tendon insertions, oblique popliteal ligament, and meniscocapsular junction appear intact. Visualized portions of the pes anserinus tendons appear normal. No abnormal bursal fluid. Lateral structures: The lateral collateral ligament, long and short heads of the biceps femoris tendon appear intact. The popliteus tendon appears normal; the popliteofibular ligament appears intact. The posterosuperior and anteroinferior popliteomeniscal fascicles appear intact. The arcuate and fabellofibular ligaments appear intact, on either side of the lateral inferior geniculate artery. Iliotibial band appears normal. Anterior structures: The distal quadriceps tendon is unremarkable. Mild tendinosis of the proximal and distal patellar tendon. Superolateral Hoffa's fat pad edema, which can be seen the setting of patellar maltracking. The patellofemoral ligaments are intact. Lateral tilt of the patella. Bones and cartilage: Mild chondral irregularity of the patella. Cartilage of the trochlea is unremarkable. In the medial compartment, the cartilage is well maintained. In the lateral compartment the card is grossly well maintained as well. No marrow edema. Mild subchondral cystic changes of the femoral condyle at the intercondylar notch, reactive. Joint space: There is physiologic knee joint fluid. No Moeller's cyst. Normal appearing synovial plicae are incidentally noted. 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 Dictated by: Leesa Arreaga M.D. on 10/27/2023 at 10:55 Approved by: Leesa Arreaga M.D. on 10/27/2023 at 11:06
== END ==
LOC: MRI 15:13
PROVIDERS: PCP Family Medicine; Referring Provider Family Medicine; Visit Provider Family Medicine
DX: M22.42 Chondromalacia patellae, left knee (principal); M25.562 Pain in left knee
CPT/HCPCS: 73721